=== PATIENT | female | born 1990 | race Caucasian/White ===

== ENCOUNTER 2021-02-20 16:12 | Emergency (ER) | payer MEDICAID ==
[~2021-02-20] VITALS: Ht 167.6 cm; Wt 67.7 kg
[~2021-02-20 16:12] MED LIST: HYDR-4383 PO; IBUP-1986 PO; METH4TAB3 PO
[2021-02-20 17:12] LABS: BASOPHILS # (AUTO) 0.1 X10'3 (0-0.2); BASOPHILS % (AUTO) 0.6 % (0-1); EOSINOPHILS # (AUTO) 0.5 X10'3 (0-0.9); EOSINOPHILS % (AUTO) 4.5 % (0-6); HEMATOCRIT 39.9 % (35.0-45.0); HEMOGLOBIN 13.6 g/dl (12.0-16.0); LYMPHOCYTES # (AUTO) 2.7 X10'3 (1.1-4.8); LYMPHOCYTES % (AUTO) 27.1 % (21-51); MEAN CORPUSCULAR HGB CONC 34.1 g/dL (33.0-36.5); MEAN CORPUSCULAR VOLUME 93.9 FL (78-98); MEAN PLATELET VOLUME 8.6 FL (7.4-10.4); MONOCYTES # (AUTO) 0.6 X10'3 (0-0.9); MONOCYTES % (AUTO) 6.2 % (2-12); NEUTROPHILS # (AUTO) 6.2 X10'3 (1.8-7.7); NEUTROPHILS % (AUTO) 61.6 % (42-75); PLATELET COUNT 241 X10'3 (140-440); RED BLOOD COUNT 4.25 X10'6 (4.20-5.60); RED CELL DISTRIBUTION WIDTH 15.6 % (11.5-14.5); WHITE BLOOD COUNT 10.1 X10'3 (4.5-11.0)
[2021-02-20 17:15] LABS: CLARITY,URINE CLOUDY (Clear); COLOR,URINE YELLOW (Yellow); GLUCOSE, URINE NEGATIVE (Neg); KETONES,URINE NEGATIVE (Neg); LEUKOCYTE ESTERASE ,URINE NEGATIVE (Neg); NITRITES, URINE NEGATIVE (Neg); OCCULT BLOOD,URINE LARGE (Neg); PROTEIN,URINE NEGATIVE (Neg); UROBILINOGEN,URINE 0.2 E.U/dL (0.2-1.0)
[2021-02-20 17:18] LABS: UA COLLECTION TYPE NON-SPECIFIED
[2021-02-20 17:24] LABS: AMORPHOUS PHOSPHATES 3+; BACTERIA,URINE FEW /HPF (Neg); MUCUS STRANDS NONE SEEN /LPF (Neg); RBC,URINE 50-100 /HPF (0-2); SQUAMOUS EPITHELIAL CELL,UR FEW /LPF (FEW); WBC,URINE 0-4 /HPF (0-4)
[2021-02-20 17:37] LABS: URINE AMPHETAMINE SCREEN NEGATIVE (Neg); URINE BARBITUATE SCREEN NEGATIVE (Neg); URINE BENZODIAZEPINES SCREEN NEGATIVE (Neg); URINE CANNABINOID SCREEN NEGATIVE (Neg); URINE COCAINE SCREEN NEGATIVE (Neg); URINE METHADONE SCREEN NEGATIVE (Neg); URINE OPIATE SCREEN NEGATIVE (Neg); URINE PHENCYCLIDINE SCREEN NEGATIVE (Neg)
[2021-02-20 17:47] LABS: ALANINE AMINOTRANSFERASE 25 U/L (12-78); ALBUMIN 3.5 G/DL (3.4-5.0); ALKALINE PHOSPHATASE 89 IU/L (46-116); ANION GAP 11 (8-16); ASPARTATE AMINO TRANSFERASE 12 U/L (10-37); BILIRUBIN,TOTAL 0.3 MG/DL (0.1-1.0); BLOOD UREA NITROGEN 7 MG/DL (7-18); BUN/CREATININE RATIO 9.5 (6.6-38.0); CALCIUM 8.7 MG/DL (8.5-10.1); CHLORIDE 108 MMOL/L (99-107); CREATININE 0.74 MG/DL (0.40-0.90); GLUCOSE 90 MG/DL (70-104); POTASSIUM 3.6 MMOL/L (3.5-5.1); SODIUM 144 MMOL/L (135-145); TOTAL CARBON DIOXIDE 25.4 MMOL/L (24-32); TOTAL PROTEIN 6.9 G/DL (6.4-8.2); eGFR > 90 ML/MIN
[2021-02-20 18:07] LABS: MAGNESIUM 2.1 MG/DL (1.5-2.4)
[2021-02-20 18:15] LABS: BETA HCG,QUANTITATIVE 20226 mIU/ml
[2021-02-20 18:20] VITALS: BP 131/87
== END 2021-02-20 18:13 | disposition home or self-care (01) ==
LOC: ER 16:18
DX: R53.83 Other fatigue (principal); R42 Dizziness and giddiness; R11.0 Nausea; N93.9 Abnormal uterine and vaginal bleeding, unspecified; Z79.899 Other long term (current) drug therapy
CPT/HCPCS: 36415; 80053; 80305; 81001; 83735; 84702; 85025; 99283

== ENCOUNTER 2021-03-24 11:02 | Emergency (ER) | payer MEDICAID ==
[~2021-03-24] VITALS: Ht 167.6 cm; Wt 65.0 kg
[2021-03-24 11:17] VITALS: BP 153/102
[2021-03-24] MEDS ORDERED: AZIT500T9 PO (11:38)
== END 2021-03-24 12:04 | disposition home or self-care (01) ==
LOC: ER 11:02
DX: J06.9 Acute upper respiratory infection, unspecified (principal); R05 Cough; J34.89 Other specified disorders of nose and nasal sinuses; F17.200 Nicotine dependence, unspecified, uncomplicated; Z79.2 Long term (current) use of antibiotics; Z79.899 Other long term (current) drug therapy
CPT/HCPCS: 99283

== ENCOUNTER 2021-05-03 18:58 | Emergency (ER) | payer MEDICAID ==
[~2021-05-03] VITALS: Ht 162.6 cm; Wt 59.1 kg
[~2021-05-03 18:58] MED LIST changes: +AZIT500T9 PO
[2021-05-03 19:24] VITALS: BP 167/102
== END 2021-05-03 20:05 | disposition home or self-care (01) ==
LOC: ER 18:58
DX: Z20.822 Contact with and (suspected) exposure to COVID-19 (principal); R09.89 Other specified symptoms and signs involving the circulatory and respiratory systems; Z79.2 Long term (current) use of antibiotics; Z79.899 Other long term (current) drug therapy
CPT/HCPCS: 36415; 99283; U0003; U0005

== ENCOUNTER 2022-12-14 17:26 | Emergency (ER) | payer MEDICAID ==
[~2022-12-14] VITALS: Ht 167.6 cm; Wt 81.8 kg
[2022-12-14 18:05] VITALS: BP 81/109
[2022-12-14] MEDS ORDERED: HYDROcodone/acetaminophen 10/325mg tab PO ONE (18:10)
[2022-12-14] MEDS ORDERED: amox tr/potassium clavulanate 875/125mg TAB PO ONE (18:10)
[2022-12-14] MEDS ORDERED: AMOX-117 PO (18:12)
== END 2022-12-14 19:08 | disposition home or self-care (01) ==
LOC: ER 17:27
DX: K04.7 Periapical abscess without sinus (principal); K08.89 Other specified disorders of teeth and supporting structures
CPT/HCPCS: 99283